=== PATIENT | male | born 1950 | race Caucasian/White ===

== ENCOUNTER 2018-06-29 07:14 | Outpatient (CLI) | payer MEDICARE, OTHER | END 2018-06-29 07:15 | disposition home or self-care (01) | LOC: CP 07:14 | PROVIDERS: ATTEND Family Medicine | DX: R06.09 Other forms of dyspnea (principal); R79.81 Abnormal blood-gas level | CPT/HCPCS: 94060; 94727 ==

== ENCOUNTER 2019-05-09 13:41 | Outpatient (CLI) | payer MEDICARE, OTHER ==
--- NOTE | 2019-05-09 14:04 | RAD ---
XR Chest Pa Lat @ [facility] History: Dyspnea Comparison: None. Findings: Heart size is enlarged. Pulmonary arteries are dilated. No pneumothorax. No effusion. No ac moapa osseous abnormality. Impression: Cardiomegaly and evidence of pulmonary arterial hypertension.
== END 2019-05-09 13:42 | disposition home or self-care (01) ==
LOC: RAD 13:41
PROVIDERS: ATTEND Internal Medicine Pulmonary Disease
DX: R06.00 Dyspnea, unspecified (principal); I27.21 Secondary pulmonary arterial hypertension; I51.7 Cardiomegaly
CPT/HCPCS: 71046

== ENCOUNTER 2021-05-22 19:30 | Outpatient (CLI) | payer MEDICARE, OTHER | END 2021-05-22 19:31 | disposition home or self-care (01) | LOC: SLEEPLAB 19:30 | PROVIDERS: ATTEND Internal Medicine Pulmonary Disease | DX: G47.33 Obstructive sleep apnea (adult) (pediatric) (principal); R53.83 Other fatigue; K21.9 Gastro-esophageal reflux disease without esophagitis; R06.83 Snoring; J44.9 Chronic obstructive pulmonary disease, unspecified; I51.9 Heart disease, unspecified; G47.10 Hypersomnia, unspecified; E66.9 Obesity, unspecified; Z68.41 Body mass index [BMI] 40.0-44.9, adult | CPT/HCPCS: 95811 ==

== ENCOUNTER 2023-07-21 12:10 | Outpatient (CLI) | payer MEDICARE, OTHER ==
[2023-07-21 14:34] LABS: #Basophils 0.1 10x3/uL (0.0-0.2); #Eosinphils 0.2 10x3/uL (0.0-0.5); #Monocytes 0.8 10x3/uL (0.0-1.1); #Neutrophils 6.8 10x3/uL (1.5-8.4); %Basophils 0.6 % (0.0-2.0); %Eosinophils 1.7 % (0.0-6.0); %Lymphocytes 17.6 % (18.0-47.0); %Monocytes 8.4 % (0.0-10.0); %Neutrophils 70.8 % (40.0-75.0); Hematocrit 39.9 % (38.8-50.0); Hemoglobin 13.5 g/dL (13.5-17.5); Mean Corpuscular HGB CONC 33.8 g/dL (32.0-36.0); Mean Corpuscular Hemoglobin 29.2 pg (27.0-33.0); Mean Corpuscular Volume 86.4 fl (81.2-95.1); Mean Platelet Volume 9.5 fl (7.4-10.4); Platelet Count 253 10x3/uL (150-450); RBC Distribution Width 14.4 % (11.5-14.5); Red Blood Cell (RBC) Count 4.62 10x6/uL (4.32-5.72); White Blood Cell (WBC) Count 9.6 10x3/uL (3.5-10.5)
[2023-07-21 14:43] LABS: INR-International Normal Ratio 0.9; Prothrombin Time 9.9 sec (9.5-12.1)
[2023-07-21 14:54] LABS: Anion Gap 21 mmol/L (10-20); BUN (Urea Nitrogen) 14 mg/dL (8.4-25.7); Calc. Creatinine Clearance 0 mL/min (70-130); Calcium 9.5 mg/dL (7.8-10.44); Carbon Dioxide 27 mmol/L (23-31); Chloride 96 mmol/L (98-107); Estimated GFR 94; Glucose 140 mg/dL (83-110); Potassium 3.6 mmol/L (3.5-5.1); Sodium 140 mmol/L (136-145)
== END 2023-07-21 12:11 | disposition home or self-care (01) ==
LOC: LABBT 12:10
PROVIDERS: ATTEND Orthopaedic Surgery
DX: Z01.812 Encounter for preprocedural laboratory examination (principal); M17.11 Unilateral primary osteoarthritis, right knee; Z86.39 Personal history of other endocrine, nutritional and metabolic disease
CPT/HCPCS: 80048; 85025; 85610; 87081

== ENCOUNTER 2024-07-19 13:37 | Outpatient (CLI) | payer MEDICARE, OTHER | END 2024-07-19 13:38 | disposition home or self-care (01) | LOC: BICRAD 13:37 | PROVIDERS: ATTEND Family Medicine | DX: M54.2 Cervicalgia (principal); M47.812 Spondylosis without myelopathy or radiculopathy, cervical region | CPT/HCPCS: 72040 ==

== ENCOUNTER 2025-08-14 08:50 | Outpatient (CLI) | payer MEDICARE, OTHER | END 2025-08-14 08:51 | disposition home or self-care (01) | LOC: BICRAD 08:50 | PROVIDERS: ATTEND Family Medicine | DX: M79.672 Pain in left foot (principal) ==